=== PATIENT | female | born 1990 | race Caucasian/White ===

== ENCOUNTER 2017-03-05 04:29 | Inpatient (IN) | payer MEDICAID ==
[2017-03-05] MEDS ORDERED: CARBOPROST TROMETHAMINE 250 MCG/ML 1 ML AMP IM PRN (04:56)
[2017-03-05] MEDS ORDERED: OXYTOCIN 10 UNIT/ML 1 ML VIAL IM PRN (04:56)
[2017-03-05] MEDS ORDERED: METHYLERGONOVINE 0.2 MG/ML 1 ML AMP IM PRN (04:56)
[2017-03-05] MEDS ORDERED: LIDOCAINE 1% (PF) 10 MG/ML (30 ML SDV) SQ PRN (04:56)
[2017-03-05] MEDS ORDERED: TERBUTALINE 1 MG/ML VIAL SQ PRN (04:56)
--- NOTE | 2017-03-05 05:18 | P.HPOB ---
History of Present Illness H&P Date: 03/05/17 Chief Complaint: 38-4/7 weeks, active labor The patient is a 27-year-old 4 para 10-1 admitted at 38-4/7 weeks as established by last menstrual period and confirmed by 20 week ultrasound. She is admitted in active labor with all signs reassuring. 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 Her last dose was last night. She is also known to be Rh- and received RhoGAM at 28 weeks. Her has otherwise, as noted above, been uncomplicated and group B strep status is negative. Obstetrical history 4 para 10-1 with 1 previous term delivery at 40 weeks which was uncomplicated. She had one early miscarriage not requiring D&C and one miscarriage at 11 weeks requiring D&C. Current statistics are listed in history of present illness. EDC of 03/15/2017 was established by last menstrual period and confirmed by 20 week ultrasound. Laboratory workup touches blood type of A- with a negative antibody screen. Rubella status is immune. All other laboratory workup was within normal limits. Second trimester Glucola was normal and group B strep status is negative. Gynecologic history is unremarkable with no history of any infections to include STDs. Review of Systems Review of systems is confined to history of present illness. Past Medical History Additional Past Medical History / Comment(s): Clotting factor 5 & MTHFR History of Any Multi-Drug Resistant Organisms: None Reported Past Surgical History: Orthopedic Surgery Additional Past Surgical History / Comment(s): Breast sx Past Psychological History: No Psychological Hx Reported Smoking Status: Never smoker Past Alcohol Use History: None Reported Past Drug Use History: None Reported Medications and Allergies Home Medications Medication Instructions Recorded Confirmed Type Pnv with Ca,No.72/Iron/FA 1 tab PO HS 02/17/16 03/05/17 History [ Plus Tablet] Heparin Sodium,Porcine [Heparin 1 injection SQ BID 03/04/17 03/05/17 History Sodium] Allergies Allergy/AdvReac Type Severity Reaction Status Date / Time No Known Allergies Allergy Verified 03/04/17 21:17 Exam - Vital Signs Vital signs: Intake and Output 03/04/17 03/04/17 03/05/17 14:59 22:59 06:59 Other: Weight 77.111 kg Patient Weight 03/05/17 06:59 Weight 77.111 kg In general, this is a well-developed, well-nourished white female in discomfort as she is in active labor. Her heart has a regular rhythm and rate without murmur. Her lungs are clear to auscultation bilaterally in all claros. Her abdomen is gravid, nondistended, has normal active bowel sounds, is soft, nontender, and without any palpable masses aside from uterine fundus. Her extremities are without any cyanosis, clubbing, or significant edema and are nontender to palpation bilaterally. Digital cervical examination demonstrates her cervix to be 9 cm dilated, 100% effaced, with the vertex in presentation at -1 station. Artificial rupture of membranes is carried out with no significant fluid produced. Assessment and Plan (1) Active labor at term Status: Acute Plan: The patient is admitted for active management of labor. She will continue to have close maternal and surveillance and expectant management will be practiced. She is no longer candidate for epidural analgesia as she has progressed passed its useful placement. I would anticipate normal spontaneous vaginal delivery in the near future.
[2017-03-05 05:29] VITALS: BMI 29.2
[2017-03-05 06:01] LABS: Basophils % (A) 0 %; CH 28.1; CHCM 34.7; Eosinophils # (A) 0.1 k/uL (0-0.7); Eosinophils % (A) 1 %; HCT 39.3 % (34.0-46.0); HDW 3.06; HGB 13.6 gm/dL (11.4-16.0); Luc # (Auto) 0.31; Luc % (Auto) 3; Lymphocytes # (A) 1.9 k/uL (1.0-4.8); Lymphocytes % (A) 16 %; MCH 28.1 pg (25.0-35.0); MCHC 34.5 g/dL (31.0-37.0); MCV 81.5 fL (80.0-100.0); Mean Platelet Volume 9.4; Monocytes # (A) 0.7 k/uL (0-1.0); Monocytes % (A) 6 %; Neutrophils # (A) 8.8 k/uL (1.3-7.7); Neutrophils % (A) 75 %; RBC 4.83 m/uL (3.80-5.40); RDW 15.1 % (11.5-15.5); WBC 11.7 k/uL (3.8-10.6); WBC (Perox) 12.12
[2017-03-05] MEDS ORDERED: BENZOCAINE/MENTHOL SPRAY 1 GM/SPRAY AEROSOL TOPICAL PRN (06:30)
[2017-03-05] MEDS ORDERED: diphenhydrAMINE 50 MG/ML 1 ML VIAL IVP PRN ×2 (06:30)
[2017-03-05] MEDS ORDERED: diphenhydrAMINE 25 MG CAP PO PRN (06:30)
[2017-03-05] MEDS ORDERED: LANOLIN CREAM 5 GM TUBE TOPICAL PRN (06:30)
[2017-03-05] MEDS ORDERED: OXYTOCIN 30 UNITS/500 ML NS 30 UNIT in SALINE 1 500ML.BAG IV SCH (06:30)
[2017-03-05] MEDS ORDERED: ZOLPIDEM 5 MG TAB PO PRN (06:30)
[2017-03-05] MEDS ORDERED: diphenhydrAMINE 50 MG CAP PO PRN (06:30)
[2017-03-05] MEDS ORDERED: SIMETHICONE 80 MG CHEWABLE PO PRN (06:30)
[2017-03-05] MEDS ORDERED: Acetaminophen-Codeine 300-30mg TAB PO PRN ×2 (06:30)
[2017-03-05] MEDS ORDERED: WITCH HAZEL 1 EACH MED..PAD TOPICAL PRN (06:30)
[2017-03-05] MEDS ORDERED: HYDROCORTISONE 2.5% RECTAL CREAM 30 GM TUBE RECTAL PRN (06:30)
--- NOTE | 2017-03-05 06:35 | P.PROBDLV ---
Vaginal Delivery Note - . Vaginal Delivery Note: The patient is a 27-year-old 4 para 10-1 admitted at 38-4/7 weeks by good dating parameters. She is admitted in active labor with all signs reassuring. Her has been uncomplicated though she carries a diagnosis of heterozygous factor V Leiden and MT HFR traits for which she has been anticoagulated with Lovenox until 36 weeks of and heparin twice daily since 36 weeks. She is also Rh- and received RhoGAM at 28 weeks. She presented to labor and delivery at 8 cm of dilation in active labor with all signs reassuring. She underwent artificial rupture of membranes with minimal fluid returned at that time but progressed rapidly to complete and 0 station. She pushed over the course of 10 minutes to a normal spontaneous vaginal delivery of a viable 7 lbs. 2 oz. baby girl with Apgars of 9 at 1 minute and 9 at 5 minutes delivered in the right occiput transverse position. cord blood was taken for evaluation for the necessity of RhoGAM prior to discharge. The placenta was delivered spontaneously, intact, and grossly normal with a grossly normal, centrally inserted three-vessel cord. There were no lacerations of the perineum, vagina, or cervix. Estimated blood loss for the case is approximately 200 mL or less. There were no complications. Both mother and infant are resting comfortably in recovery.
[2017-03-05] MEDS: SENNOSIDES-DOCUSATE SODIUM 1 EACH TAB PO SCH ×2 (08:16→20:10)
[2017-03-05] MEDS: IBUPROFEN 600 MG TAB PO PRN ×3 (08:16→20:10)
[2017-03-05] MEDS ORDERED: ENOXAPARIN 40 MG/0.4 ML SYRINGE SQ SCH (09:00)
[2017-03-05] MEDS: LACTATED RINGERS 1,000 ML IV SCH (09:29)
[2017-03-05] MEDS: ACETAMINOPHEN TAB 325 MG TAB PO PRN ×2 (16:49→23:24)
[2017-03-05] MEDS ORDERED: Rhogam IMMUNE GLOBULIN 1,500 UNIT/1 ML IM ONE (17:56)
[2017-03-06] MEDS: LACTATED RINGERS 1,000 ML IV SCH ×2 (03:30→03:31)
[2017-03-06 03:41] VITALS: RESP 16
[2017-03-06] MEDS: IBUPROFEN 600 MG TAB PO PRN (05:34)
[2017-03-06] MEDS: SENNOSIDES-DOCUSATE SODIUM 1 EACH TAB PO SCH (07:39)
[2017-03-06 07:43] VITALS: BP 113/72; PULSE 83; TEMP 97.8
--- NOTE | 2017-03-06 09:58 | P.DS ---
Providers Date of admission: 03/05/17 04:47 Expected date of discharge: 03/06/17 Attending physician: Matty Mcgregor Primary care physician: Matty Mcgregor - Discharge Diagnosis(es) (1) Active labor at term Current Visit: Yes Status: Acute (2) Factor 5 Leiden mutation, heterozygous Current Visit: Yes Status: Acute (3) Normal spontaneous vaginal delivery Current Visit: Yes Status: Acute (4) Rh negative status during Current Visit: Yes Status: Acute Hospital Course: This is a 27-year-old 4 now para 20-2 woman who was admitted at 38-4/7 weeks in active labor. Her is complicated by factor V Leiden and MTH FR Dario heterozygous. She has been anticoagulated throughout the . She is Rh-. Following admission she had an unremarkable labor and had a spontaneous delivery of a liveborn female over an intact perineum. Apgars were 9 at 1 minute and 9 at 5 minutes and weight was 7 lbs. 2 oz. Her anticoagulation was restarted post delivery. By day #1 she is ambulating and voiding without difficulty. She has minimal lochia. Her vital signs are stable. She is breast-feeding successfully. She is therefore discharged home with routine instructions for care and follow-up. She will resume her home Lovenox for 6 weeks . Plan - Discharge Summary Discharge Medication List Pnv with Ca,No.72/Iron/FA [ Plus Tablet] 1 tab PO HS 02/17/16 [History] Heparin Sodium,Porcine [Heparin Sodium] 1 injection SQ BID 03/04/17 [History] Follow up Appointment(s)/Referral(s): Matty Mcgregor MD [Primary Care Provider] - 6 Weeks Activity/Diet/Wound Care/Special Instructions: Follow-up in the office in 6 weeks . Call with any concerning signs or symptoms including heavy vaginal bleeding, severe abdominal pain, fever greater than 101, swelling or redness of the lower extremities, foul vaginal discharge, or signs of depression. Nothing in the vagina for 6 weeks after delivery, specifically no intercourse. Discharge Disposition: HOME SELF-CARE
== END 2017-03-06 11:40 | disposition home or self-care (01) | DRG 775 ==
LOC: FBPOP 04:29 → 4FBP 04:47
PROVIDERS: ADMIT Obstetrics & Gynecology; ATTEND Obstetrics & Gynecology
PROC: 10E0XZZ Delivery of Products of Conception, External Approach (ICD-10-PCS; principal; 2017-03-05)
PROC: 10907ZC Drainage of Amniotic Fluid, Therapeutic from Products of Conception, Via Natural or Artificial Opening (ICD-10-PCS; 2017-03-05)
DX: O99.12 Other diseases of the blood and blood-forming organs and certain disorders involving the immune mechanism complicating childbirth (principal); D68.51 Activated protein C resistance; O26.893 Other specified pregnancy related conditions, third trimester; Z37.0 Single live birth; Z3A.38 38 weeks gestation of pregnancy; Z67.91 Unspecified blood type, Rh negative
CPT/HCPCS: 85025; 85461; 88307; 99213